=== PATIENT | male | born 1990 | race Caucasian/White ===

== ENCOUNTER → 2017-04-21 | Outpatient (CLI) | payer MEDICARE, MEDICAID | END | disposition home or self-care (01) | LOC: GMA 16:30 | PROVIDERS: ATTEND Physician Assistant | DX: N39.0 Urinary tract infection, site not specified (principal) ==

== ENCOUNTER → 2019-09-16 | Outpatient (CLI) | payer MEDICARE, MEDICAID | LOC: GMAL 10:56 | PROVIDERS: ATTEND Family Medicine | DX: D51.3 Other dietary vitamin B12 deficiency anemia (principal); R53.83 Other fatigue; E55.9 Vitamin D deficiency, unspecified; E11.9 Type 2 diabetes mellitus without complications; Z79.899 Other long term (current) drug therapy ==

== ENCOUNTER → 2019-11-22 | Outpatient (CLI) | payer MEDICARE, MEDICAID | LOC: LAB.O 14:38 | DX: F31.64 Bipolar disorder, current episode mixed, severe, with psychotic features (principal) ==

== ENCOUNTER → 2020-02-22 | Outpatient (CLI) | payer MEDICARE, MEDICAID | LOC: LAB.O 15:07 | PROVIDERS: ATTEND Psychiatry & Neurology Psychiatry | DX: F90.2 Attention-deficit hyperactivity disorder, combined type (principal) ==

== ENCOUNTER → 2020-09-12 | Outpatient (CLI) | payer MEDICARE, MEDICAID | LOC: GMAL 14:30 | PROVIDERS: ATTEND Family Medicine | DX: D51.3 Other dietary vitamin B12 deficiency anemia (principal); E55.9 Vitamin D deficiency, unspecified; R53.83 Other fatigue; E11.9 Type 2 diabetes mellitus without complications; Z79.899 Other long term (current) drug therapy ==